=== PATIENT | male | born 1965 | race Caucasian/White ===

== ENCOUNTER 2018-04-13 07:49 | Emergency (ER) | payer MEDICARE ==
[2018-04-13 08:16] VITALS: BP 118/83
--- NOTE | 2018-04-13 08:45 | UC ---
Throat Pain/Nasal Adeel HPI - HPI Summary HPI Summary: The patient is a 52-year-old male that presents here within about a one-week history of progressively worsening left sided neck pain and sore throat. He has been afebrile. He has had no trouble eating or drinking. He has no myalgias or arthralgias. - History of Current Complaint Chief Complaint: UCRespiratory Stated Complaint: SORE THROAT,EARS Time Seen by Provider: 04/13/18 08:26 Hx Obtained From: Patient Onset/Duration: Sudden Onset Severity: Mild Pain Intensity: 4 Pain Scale Used: 0-10 Numeric Cough: None Associated Signs & Symptoms: Positive: Negative - Epiglottits Risk Factors Epiglottis Risk Factors: Negative - Allergies/Home Medications Allergies/Adverse Reactions: Allergies Allergy/AdvReac Type Severity Reaction Status Date / Time Sulfa (Sulfonamide Allergy Rash Verified 04/13/18 08:09 Antibiotics) PMH/Surg Hx/FS Hx/Imm Hx Previously Healthy: Yes - Surgical History Surgical History: Yes Surgery Procedure, Year, and Place: CERVICAL FUSION - Family History Known Family History: Positive: Hypertension - Social History Alcohol Use: None Substance Use Type: Marijuana Substance Use Comment - Amount & Last Used: daily Smoking Status (MU): Former Smoker Type: Cigarettes Amount Used/How Often: 1 packday When Did the Patient Quit Smoking/Using Tobacco: 2013 Review of Systems All Other Systems Reviewed And Are Negative: Yes Constitutional: Positive: Negative Skin: Positive: Negative Eyes: Positive: Negative ENT: Positive: Sore Throat Respiratory: Positive: Negative Cardiovascular: Positive: Negative Gastrointestinal: Positive: Negative Genitourinary: Positive: Negative Motor: Positive: Negative Neurovascular: Positive: Negative Musculoskeletal: Positive: Negative Neurological: Positive: Negative Psychological: Positive: Negative Physical Exam Triage Information Reviewed: Yes Appearance: Well-Appearing, No Pain Distress, Well-Nourished Vital Signs: Initial Vital Signs Temp 98.3 F 04/13/18 08:11 Pulse 91 04/13/18 08:11 Resp 14 04/13/18 08:11 BP 118/83 04/13/18 08:11 Pulse Ox 96 04/13/18 08:11 Vital Signs Reviewed: Yes Eyes: Positive: Conjunctiva Clear ENT: Positive: Hearing grossly normal, TMs normal, Muffled voice, Other - large swelling left soft palate. Negative: Pharynx normal, Pharyngeal erythema, Nasal congestion, Nasal drainage, Tonsillar swelling, Tonsillar exudate, Trismus , Hoarse voice, Sinus tenderness, Uvula midline Neck: Positive: Supple, Nontender, No Lymphadenopathy Respiratory: Positive: Lungs clear, Normal breath sounds, No respiratory distress, No accessory muscle use Cardiovascular: Positive: RRR, No Murmur Musculoskeletal: Positive: ROM Intact, No Edema Neurological: Positive: Alert Psychological Exam: Normal Skin Exam: Normal Diagnostics - Laboratory Diagnostic Studies Completed/Ordered: strep (-) Throat Pain/Nasal Course/Dx - Course Course Of Treatment: Called [facility] ER: Relayed my concens that this swelling may be neoplastic. (pts age, lack of fever/CONTRERAS/myalgias/(-) strep). I advised pt go to ER due to concerns for airway if swelling worsens and for nailing down a diagnosis - Differential Dx/Diagnosis Differential Diagnosis/HQI/PQRI: Peritonsillar Abscess, Other - Throat CA Provider Diagnoses: left soft palate and peritonsillar swelling of uncertain cause Discharge - Sign-Out/Discharge Documenting (check all that apply): Patient Departure All imaging exams completed and their final reports reviewed: No Studies - Discharge Plan Condition: Stable Disposition: HOME-RECOMMEND TO ED Referrals: Merrick Jones DO [Primary Care Provider] - Additional Instructions: I spoke to the Lauren Turcios in the ER They will be expecting you Please go directly to the ER for evaluation of the swelling in your throat - Billing Disposition and Condition Condition: STABLE Disposition: Home-Recommend to ED
== END 2018-04-13 08:44 | disposition home health service (06) ==
LOC: UCCORT 07:49
DX: K13.79 Other lesions of oral mucosa (principal); J35.1 Hypertrophy of tonsils; Z88.1 Allergy status to other antibiotic agents; Z87.891 Personal history of nicotine dependence
CPT/HCPCS: 87651; 99211; G0463